=== PATIENT | male | born 1955 | race Caucasian/White ===

== ENCOUNTER → 2020-10-14 | Outpatient (CLI) | payer OTHER ==
[~2020-10-14] MED LIST: ALPRAZOLAM 0.0.25 M1 PO; ASPIRIN81 M2 PO; CELEXA 10 MG TA10 M1 PO; COLACE 100 MG100 MG PO; DIABETA 5MG TABL5 MG PO; EFFIENT10 MG PO; GLUCOPHAGE1000 MG PO; IMDUR 30 MG TAB30 M1 PO; K-DUR 20 MEQ T20 MEQ PO; LASIX 40 MG TAB40 M1 PO; LIPITOR20 MG PO; LIPITOR80 MG PO; LISINOPRIL10 MG PO; LISINOPRIL5 MG PO; LORTAB 5 MG/5001 TA1 PO; MINIPRIN81 MG PO; MOBIC15 MG PO; PACERONE 200 M200 MG PO; PERCOCET 5-3251 EACH PO; PHISOHEX148 ML; TOPROL XL25 MG PO; TOPROL XL50 MG PO; TRIPLE ANTIBIOT30 G2 NASAL; VICODIN 5-5001 EACH PO
== END ==
LOC: SJCVCIMAG 13:26 → SJCVC 15:02 → SJCVCIMAG 15:02
PROVIDERS: ATTEND Internal Medicine Cardiovascular Disease
DX: I70.213 Atherosclerosis of native arteries of extremities with intermittent claudication, bilateral legs (principal); I45.10 Unspecified right bundle-branch block; R94.31 Abnormal electrocardiogram [ECG] [EKG]; E78.00 Pure hypercholesterolemia, unspecified; I25.810 Atherosclerosis of coronary artery bypass graft(s) without angina pectoris; I10 Essential (primary) hypertension; E11.9 Type 2 diabetes mellitus without complications; Z82.49 Family history of ischemic heart disease and other diseases of the circulatory system; Z79.84 Long term (current) use of oral hypoglycemic drugs; Z95.1 Presence of aortocoronary bypass graft; Z79.899 Other long term (current) drug therapy

== ENCOUNTER → 2020-10-22 | Outpatient (CLI) | payer OTHER ==
[~2020-10-22] VITALS: Ht 182.9 cm; Wt 89.4 kg
[~2020-10-22] MED LIST changes: +BYSTOLIC10 MG PO; +CENTRUM SILVER1 EAC7 PO; +FARXIGA10 MG PO; +PLAVIX 75 MG TA75 MG PO; +VICTOZA0.6 MG/0.1 SUBQ
[2020-10-22 07:13] VITALS: BP 133/59
[2020-10-22 07:41] LABS: HEMATOCRIT 46.5 % (42.0-52.0); HEMOGLOBIN 15.8 gm/dL (14.0-18.0); MCH 32.1 pg (26.0-34.0); MCV 94.5 fL (80.0-100.0); RBC 4.93 mil/uL (4.50-6.00); RDW 12.8 % (10.5-14.5)
[2020-10-22 07:49] LABS: CALCIUM 9.6 mg/dL (8.5-10.1); CREATININE 1.1 mg/dL (0.7-1.3); POTASSIUM 4.2 mmol/L (3.5-5.1)
== END | disposition home or self-care (01) ==
LOC: CATH 06:40
PROVIDERS: ATTEND Nuclear Medicine Nuclear Cardiology
DX: I70.213 Atherosclerosis of native arteries of extremities with intermittent claudication, bilateral legs (principal); I70.1 Atherosclerosis of renal artery; K55.1 Chronic vascular disorders of intestine; I15.0 Renovascular hypertension; R10.9 Unspecified abdominal pain; I25.10 Atherosclerotic heart disease of native coronary artery without angina pectoris; I11.0 Hypertensive heart disease with heart failure; I50.9 Heart failure, unspecified; E78.5 Hyperlipidemia, unspecified; E11.9 Type 2 diabetes mellitus without complications; I25.2 Old myocardial infarction; Z98.890 Other specified postprocedural states; Z79.899 Other long term (current) drug therapy; Z95.1 Presence of aortocoronary bypass graft; Z96.652 Presence of left artificial knee joint; Z88.8 Allergy status to other drugs, medicaments and biological substances

== ENCOUNTER → 2020-10-27 | Outpatient (CLI) | payer OTHER ==
[~2020-10-27] VITALS: Ht 182.9 cm; Wt 90.0 kg
[2020-10-27 07:23] VITALS: BP 168/78
--- NOTE | 2020-10-29 14:19 | CATHLAB ---
[facility] [place] [address] INVASIVE PROCEDURE REPORT Name: JACQUIE HANSEN Room #: REG ANKUSH Wallace#: [id number] Admission: 10/27/20 Attend Phys: Galen Garnett MD Discharge: Date of : 59 Report #: [id number] REPORT FOR: cc: Mariposa Helton MD, Katrina MD Mancuso, Gerald M. MD [facility] ~ APPROVED REPORT Study performed: 10/27/2020 09:28:25 Patient Details Patient Status: Out-Patient Room #: The patient is a 65 year-old male Event Personnel Erik Sosa Front End Ui Developer, Cathy Willingham RN RN, Mike Kaur RTR Monitor, Umu Hobson RTR, UPPERS EDGE BURNISHER Scrub Procedures Performed Left Heart Cath Coronaries, Bypass Grafts [id number] CCORCABG 00837 Initial Mod Sed Same Phys/QHP Gr5y [id number] 11145 Mod Sed Same Phys/QHP Ea [id number] Hemostasis w/ Mynx Indication Chest pain Procedure Narrative The left groin was infiltrated with 1% Lidocaine subcutaneous anesthesia. A SHEATH BRITE-TIP 6F X 11CM ([id number]) sheath was inserted into the LFA. Coronary angiography was performed using coronary diagnostic catheters. The right coronary system was accessed and visualized with a JR4 catheter. The left coronary system was accessed and visualized with a JL4 catheter. The left ventricle was accessed and visualized with a PIGTAIL catheter. Left ventricular/Aortic Valve gradient assessed via catheter pullback. Left ventriculogram was performed in 30 degree projection. Closure device was deployed with a 6 Fr MYNX CONTROL. The patient tolerated the procedure well and there were no complications associated with the procedure. There was no hematoma. Intraoperative Conscious Sedation Sedation start time: 08:39 Case end Time: 10:33 [facility] [place] [address] INVASIVE PROCEDURE REPORT Name: JACQUIE HANSEN Room #: [facility]#: [id number] Admission: 10/27/20 Attend Phys: Galen Garnett, Discharge: Date of : 59 Report #: [id number] Fentanyl 300 mcg Versed 4 mg Conscious sedation is a combined total for peripheral procedure and left heart cath. Fluoro and dose are a combined total for peripheral procedure and left heart cath. Contrast is a combined total for peripheral procedure and left heart cath. Fluoro Time: 10.88 minutes Dose: DAP 8294.50 cGycm2 860 mGy Contrast Type and Amount: Omnipaque 154 ml Hemodynamics The aortic pressure is 129/55 mmHg with a mean of 83 mmHg. The left ventricular pressure is 137/4 mmHg with a mean of mmHg. The left ventricular end diastolic pressure is 23 mmHg. PCI Technique Lesion Percutaneous coronary intervention was performed on the Superficial Femoral. Conclusion #1. Normal left jugular size and systolic function EF 60% #2 left main moderate to disease calcified giving rise to LAD and circumflex. #3 proximal LAD occludes filled via bypass graft. #4 dominant right coronary artery occluded. #5 SVG to distal right filling PDA BRODIE with mildly diseased. [place] right is 50% occluded at the ostium. #6 SVG to SVG to diagonal OM1 OM 2 all briskly filled all small in caliber. But no high-grade occlusive disease #7 the [place] circumflex OM is occluded. 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 Recommendations and plan: Continue aggressive risk factor modification no indication for coronary intervention. <ELECTRONICALLY SIGNED> By: Erik Sosa MD, FACC 10/29/20 1418 [id number] Erik Sosa MD, FACC /INF
== END | disposition home or self-care (01) ==
LOC: CATH 06:28
PROVIDERS: ATTEND Nuclear Medicine Nuclear Cardiology
DX: R07.9 Chest pain, unspecified (principal); I25.810 Atherosclerosis of coronary artery bypass graft(s) without angina pectoris; I70.211 Atherosclerosis of native arteries of extremities with intermittent claudication, right leg; I11.0 Hypertensive heart disease with heart failure; I50.9 Heart failure, unspecified; E11.9 Type 2 diabetes mellitus without complications; E78.5 Hyperlipidemia, unspecified; I25.2 Old myocardial infarction; E78.00 Pure hypercholesterolemia, unspecified; Z98.890 Other specified postprocedural states; Z79.899 Other long term (current) drug therapy; Z96.652 Presence of left artificial knee joint; Z95.1 Presence of aortocoronary bypass graft

== ENCOUNTER → 2021-02-23 | Outpatient (CLI) | payer OTHER | LOC: SJCVCIMAG 09:05 | PROVIDERS: ATTEND Nuclear Medicine Nuclear Cardiology | DX: R94.31 Abnormal electrocardiogram [ECG] [EKG] (principal); I65.23 Occlusion and stenosis of bilateral carotid arteries; I77.1 Stricture of artery; I25.10 Atherosclerotic heart disease of native coronary artery without angina pectoris; I73.9 Peripheral vascular disease, unspecified; M79.605 Pain in left leg; M79.604 Pain in right leg; I45.10 Unspecified right bundle-branch block; E11.9 Type 2 diabetes mellitus without complications; I77.9 Disorder of arteries and arterioles, unspecified; E78.00 Pure hypercholesterolemia, unspecified; I10 Essential (primary) hypertension; I35.0 Nonrheumatic aortic (valve) stenosis; Z95.1 Presence of aortocoronary bypass graft ==